=== PATIENT | female | born 1965 | race Caucasian/White ===

== ENCOUNTER → 2020-04-10 16:01 | Outpatient (CLI) | payer OTHER, SELFPAY ==
--- NOTE | ~2020-04-10 | MM_ITS ---
EXAMINATION: MM screening [facility] w james HISTORY: Screening mammogram TECHNIQUE: Craniocaudal and mediolateral oblique 3-D tomosynthesis images were obtained and synthetic 2-D images were generated. CAD analysis was submitted and interpreted. COMPARISON: 11/28/2017, 10/15/2016, 09/12/2015 BREAST PARENCHYMAL COMPOSITION: There are scattered areas of fibroglandular density. FINDINGS: There is no evidence of suspicious mass, calcification, or architectural distortion to sugg est malignancy in either breast. There has been no suspicious interval change. IMPRESSION: 1. No mammographic evidence of malignancy. 2. Recommend routine screening mammography in one year. BI-RADS Category 1: Negative Reviewed, dictated and finalized at location A. 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
== END ==
PROVIDERS: PCP Internal Medicine; Visit Provider Clinical Nurse Specialist
DX: Z12.31 Encounter for screening mammogram for malignant neoplasm of breast (principal)
CPT/HCPCS: 77063; 77067

== ENCOUNTER 2021-09-16 10:16 | Outpatient (CLI) | payer BC, SELFPAY ==
--- NOTE | ~2021-09-16 | XR_ITS ---
XR lumbar spine 2-3V DATE: 09/16/2021 10:42 INDICATION: Back pain TECHNIQUE: AP, lateral, coned lateral lumbosacral views COMPARISON: None FINDINGS: There is osteopenia. There is minimal dextroscoliosis of the lumbar spine. Normal alignment of the lumbar spine. No fracture or bone destruction. The lumbar pedicles are intact . There is mild degenerative disc disease at L1-2, L2-3 and L3-4. There is moderately severe degenerati ve disc disease at L4-5, moderate degenerative disease at L5-S1. The sacroiliac joints are intact. Status post cholecystectomy. IMPRESSION: Osteopenia Mild dextro scoliosis Multilevel degenerative disc disease, most pronounced at L4-5 Reviewed, dictated and finalized at location A.
--- NOTE | ~2021-09-16 | XR_ITS ---
EXAMINATION: XR hip RT min 2V DATE: 09/16/2021 10:41 INDICATION: Right hip pain. TECHNIQUE: 2 views of right hip were obtained. COMPARISON: Right hip radiographs 03/25/2009 FINDINGS: Bone alignment is normal. No fracture. There is moderate lumbar spondylosis. There is mild right hip osteoarthritis. IMPRESSION: 1. Mild right hip osteoarthritis. Reviewed, dictated and finalized at location B.
== END 2021-09-16 10:17 | disposition home or self-care (01) ==
PROVIDERS: PCP Internal Medicine; Visit Provider Clinical Nurse Specialist
DX: M16.11 Unilateral primary osteoarthritis, right hip (principal); M85.88 Other specified disorders of bone density and structure, other site; M51.36 Other intervertebral disc degeneration, lumbar region
CPT/HCPCS: 72100; 73502

== ENCOUNTER → 2021-09-30 09:47 | Outpatient (CLI) | payer BC, SELFPAY ==
--- NOTE | ~2021-09-30 | MR_ITS ---
j EXAMINATION: MR lumbar spine wo con DATE: 09/30/2021 10:16 INDICATION: Degenerative disc disease seen on x-ray . TECHNIQUE: Magnetic resonance imaging (MRI) of the lumbar spine was performed without intravenous con trast. Sequences included sagittal T2-weighted FSE, sagittal T2-weighted FS FSE, sagittal T1-weighted FSE, and axial T2-weighted FSE. COMPARISON: None FINDINGS: The last fully formed and hydrated disc is designated L5-S1. The marrow signal is somewhat heterogeneous possibly secondary to reconversion, no suspicious focal or infiltrative signal change. Mild reactive marrow edema in the anterior L2 vertebral body. Conus terminates at T12-L1. Multilevel disc height and disc dehydration, severe at T12-L1 and L4-5. The following disc levels are specifical ly discussed: T11-T12: The disc does not extend beyond the endplate margin. There is no facet joint osteoarthritis. There is no neural foraminal stenosis. There is no central canal stenosis. T12-L1: Moderate diffuse bulge. There is mild facet joint osteoarthritis. There is no neural foramina l stenosis. There is no central canal stenosis. L1-L2: Mild diffuse bulge. There is moderate facet joint osteoarthritis. There is no neural foraminal stenosis. There is no central canal stenosis. L2-L3: Mild diffuse bulge. There is moderate facet joint osteoarthritis. There is mild left neural fo raminal stenosis. There is no central canal stenosis. L3-L4: Mild diffuse bulge, with a 2 mm superimposed left foraminal protrusion and a focal annulus tea r. There is moderate facet joint osteoarthritis. There is mild neural foraminal stenosis. There is no central canal stenosis. L4-L5: Moderate diffuse bulge with a left foraminal component. There is moderate facet joint osteoart hritis. There is mild neural foraminal stenosis. There is no central canal stenosis. L5-S1: Mild diffuse bulge with a 3 mm left foraminal protrusion and a focal, circumferential annulus tear. There is moderate facet joint osteoarthritis. There is no right and moderate left neural forami nal stenosis. There is no central canal stenosis. IMPRESSION: 1. Severe degenerative disc disease at T12-L1 and L4-L5. 2. Focal annular tears in the L3-4 and L5-S1 discs. 3. Moderate left neural foraminal stenosis at L5-S1 secondary to degenerative disc disease with a 3 m m left foraminal protrusion and moderate facet arthropathy. 4. Multilevel moderate facet arthropathy. Reviewed, dictated and finalized at location K. IMPRESSION: 1. Severe degenerative disc disease at T12-L1 and L4-L5. 2. Focal annular tears in the L3-4 and L5-S1 discs. 3. Moderate left neural foraminal stenosis at L5-S1 secondary to degenerative d isc disease with a 3 mm left foraminal protrusion and moderate facet arthropath y. 4. Multilevel moderate facet arthropathy.
== END ==
PROVIDERS: PCP Internal Medicine; Visit Provider Clinical Nurse Specialist
DX: M47.25 Other spondylosis with radiculopathy, thoracolumbar region (principal); M48.05 Spinal stenosis, thoracolumbar region; M47.817 Spondylosis without myelopathy or radiculopathy, lumbosacral region; M48.07 Spinal stenosis, lumbosacral region
CPT/HCPCS: 72148

== ENCOUNTER 2021-12-09 00:55 | Day surgery (SDC) | payer BC, SELFPAY ==
[2021-11-25 13:27] VITALS: BMI 23.9
[2021-12-09 06:46] VITALS: BP 111/78; PULSE 60; RESP 20; TEMP 36.3; O2SAT 99
[2021-12-09] MEDS: LACTATED RINGERS 1,000 ML 150 ML IV CONT (06:56)
--- NOTE | 2021-12-09 07:28 | WPDANESEPPF ---
Anes - Initial Pre Proc Eval Procedure: Operation Date: 12/09/21 08:00 Proposed Procedures p Screening Colonoscopy - Jaiden Griffin MD Date/Time: 12/09/21 07:28 Surgeon: Jaiden Griffin MD Pre Op Diagnosis: neoplasm screening Patient Data Age: 56 Gender: F Height: 1.6 m Weight: 60.4 kg Last Vital Signs Temp 97.4 F L 12/09/21 06:46 Pulse 60 12/09/21 06:46 Resp 20 12/09/21 06:46 BP 111/78 12/09/21 06:46 Pulse Ox 99 12/09/21 06:46 O2 Del Method Room Air 12/09/21 06:46 Allergies Allergy/AdvReac Type Severity Reaction Status Date / Time Penicillins Allergy Hives Verified 12/09/21 06:45 Home Medications Medication Instructions Recorded Confirmed Type calcium carbonate 600 mg-vitamin 2 cap PO DAILY 01/03/20 11/25/21 History D3 12.5 mcg (500 unit) capsule (Calcium 600 with Vitamin D3) cholecalciferol (vitamin D3) 50 2,000 unit PO DAILY 01/03/20 11/25/21 History mcg (2,000 unit) capsule cyanocobalamin (vitamin B-12) 2,500 mcg PO DAILY 01/03/20 11/25/21 History 2,500 mcg tablet elderberry fruit 200 mg capsule 200 mg PO POST-TRANSFUSION 01/03/20 11/25/21 History multivitamin 1 tablet PO DAILY 01/03/20 11/25/21 History multivitamin with minerals 1 tablet PO DAILY 01/03/20 11/25/21 History (Hair,Skin and Nails tablet) omega-3 fatty acids 1,000 mg 1,000 mg PO BID 01/03/20 11/25/21 History capsule (Fish Oil Concentrate) omeprazole 20 mg capsule,delayed 20 mg PO BID 01/03/20 11/25/21 History release ashwaganda See Rx Instructions .Route .COMPLEX 10/14/21 11/25/21 History sertraline 100 mg tablet (Zoloft) 100 mg PO DAILY 11/25/21 11/25/21 History meloxicam 7.5 mg tablet 7.5 mg PO DAILY PRN back pain #30 12/01/21 Rx tabs Patient hx anesthesia problems: none Family hx anesthesia problems: none Results Review: All pre-operative results and documents have been reviewed as part of the pre-operative evaluation. [facility] Past Medical History Medical History Cholecystectomy planned Surgical History Surgical History H/O section 1988 History of tonsillectomy Family History Family History Mother Lung cancer Sibling Cervical cancer Social History Social History Smoking packs per day: 1 Smoking cigarettes per day: 20.0 Smoking status: Former smoker Tobacco type: cigarettes Alcohol intake: never Substance use: never Living arrangements: with family Anes - Eval Final PreProcedure Day of Procedure 12/09/21 07:28 Patient weight: normal Heart: regular rate and rhythm Lungs: clear to auscultation Airway: Mallampati scale class II Neurological: alert and oriented Last oral intake: >/= 8 hours ASA classification: II Emergent: no Anesthetic plan: proceed Anesthesia type and monitoring: general GIVS and standard monitoring Results Review: All pre-operative results and documents have been reviewed as part of the pre-operative evaluation. Informed Consent: The patient's anesthetic plan and its attendant risks and benefits were discussed with the patient/family/POA. Questions were solicited and answers provided to the satisfaction of the patient/family/POA.
--- NOTE | 2021-12-09 07:50 | PM.HPGS ---
History of Present Illness History of Present Illness Consent: Risks, benefits, and alternatives have been discussed and questions answered. Patient agrees to proceed with procedure. Chief complaint: neoplasm screening Narrative: Janae Xiong is a 56 year old female here for first screening colonoscopy Review of Systems Constitutional: Constitutional: Denies headache(s) and Denies weakness Eyes: Eyes: Denies blurry vision ENT: Reports Normal hearing present, Denies headache(s) and Denies neck pain Cardiovascular: Cardiovascular: Denies chest pain and Denies dyspnea Respiratory: Respiratory: Denies dyspnea Gastrointestinal: Gastrointestinal: Reports no additional gastrointestinal complaints Genitourinary: Genitourinary: Denies dysuria Musculoskeletal: Musculoskeletal: Denies neck pain Integumentary/Breasts: Skin/Breast: Denies dry skin Neurologic: Reports Normal hearing present, Denies headache(s) and Denies weakness Psychiatric: Psychiatric: Denies anxiety Endocrine: Endocrine: Denies change in body appearance Hematologic/Lymphatic: Hematologic/Lymphatic: Denies easy bleeding Allergic/Immunologic: Allergic/Immunologic: Denies urticaria PMF Past Medical History Medical History Cholecystectomy planned Surgical History Surgical History H/O section 1988 History of tonsillectomy Family History Family History Mother Lung cancer Sibling Cervical cancer Social History Social History Smoking packs per day: 1 Smoking cigarettes per day: 20.0 Smoking status: Former smoker Tobacco type: cigarettes Alcohol intake: never Substance use: never Living arrangements: with family Meds Home Medications and Allergies Home Medications Medication Instructions Recorded Confirmed Type calcium carbonate 600 mg-vitamin 2 cap PO DAILY 01/03/20 11/25/21 History D3 12.5 mcg (500 unit) capsule (Calcium 600 with Vitamin D3) cholecalciferol (vitamin D3) 50 2,000 unit PO DAILY 01/03/20 11/25/21 History mcg (2,000 unit) capsule cyanocobalamin (vitamin B-12) 2,500 mcg PO DAILY 01/03/20 11/25/21 History 2,500 mcg tablet elderberry fruit 200 mg capsule 200 mg PO POST-TRANSFUSION 01/03/20 11/25/21 History multivitamin 1 tablet PO DAILY 01/03/20 11/25/21 History multivitamin with minerals 1 tablet PO DAILY 01/03/20 11/25/21 History (Hair,Skin and Nails tablet) omega-3 fatty acids 1,000 mg 1,000 mg PO BID 01/03/20 11/25/21 History capsule (Fish Oil Concentrate) omeprazole 20 mg capsule,delayed 20 mg PO BID 01/03/20 11/25/21 History release ashwaganda See Rx Instructions .Route .COMPLEX 10/14/21 11/25/21 History sertraline 100 mg tablet (Zoloft) 100 mg PO DAILY 11/25/21 11/25/21 History meloxicam 7.5 mg tablet 7.5 mg PO DAILY PRN back pain #30 12/01/21 Rx tabs Allergies Allergy/AdvReac Type Severity Reaction Status Date / Time Penicillins Allergy Hives Verified 12/09/21 06:45 Vital Signs Vital Signs - 24 hr 12/09/21 06:46 Temperature 97.4 F L Pulse Rate 60 Respiratory Rate 20 Blood Pressure 111/78 Pulse Oximetry 99 Oxygen Delivery Room Air Exam Const: General: comfortable and no acute distress HENMT: General nose exam: Normal nares present Eyes: General: appearance normal, both eyes and all related structures Neck: Neck: no JVD Resp: Auscultation: clear to auscultation bilaterally Cardio: Rate: regular rate Rhythm: regular rhythm GI: Inspection: non-distended GI Palp: Yes Soft to palpation Skin: General skin exam: normal color Neuro: General: gait normal Speech: normal speech Extrem: General: normal to inspection Psych: Mental Status: mental status grossly normal Assessment and Plan Assessment and
[2021-12-09 08:10] VITALS: BP 104/79; PULSE 59; RESP 18; O2SAT 100
[2021-12-09 08:20] VITALS: BP 99/76; PULSE 63; RESP 24; O2SAT 100
[2021-12-09 08:30] VITALS: BP 128/82; PULSE 61; RESP 21; O2SAT 100
== END 2021-12-09 08:32 | disposition home or self-care (01) ==
PROVIDERS: PCP Internal Medicine; Visit Provider Internal Medicine Gastroenterology
PROC: 0DJD8ZZ Inspection of Lower Intestinal Tract, Via Natural or Artificial Opening Endoscopic (ICD-10-PCS; CPT 45378; principal; 2021-12-09 08:00)
DX: Z12.11 Encounter for screening for malignant neoplasm of colon (principal); K63.5 Polyp of colon; K57.30 Diverticulosis of large intestine without perforation or abscess without bleeding; K64.8 Other hemorrhoids
CPT/HCPCS: 45385; 88305; J2704; J7120

== ENCOUNTER 2023-01-25 15:24 | Outpatient (CLI) | payer BC, SELFPAY ==
--- NOTE | ~2023-01-25 | XR_ITS ---
EXAMINATION: XR lumbar spine min 4V DATE: 01/25/2023 16:10 INDICATION: Radiculopathy, lumbar region. TECHNIQUE: 4 views of lumbar spine standing including flexion and extension views were obtained. COMPARISON: Lumbar spine radiographs 09/16/2021, MRI 09/30/2021 FINDINGS: There is 11 degrees dextroscoliosis of thoracolumbar spine. The spine is hypomobile with fl exion and extension. Vertebral body heights are normal. There is moderately decreased disc height at T12-L1 and L4-L5. There is multilevel mild to moderate facet joint osteoarthritis. Surgical clips in the right upper quadrant are likely from cholecystectomy. IMPRESSION: 1. Moderate lumbar spondylosis. 2. Thoracolumbar dextroscoliosis. Reviewed, dictated and finalized at location E.
--- NOTE | ~2023-01-25 | XR_ITS ---
XR hip RT min 2V 01/25/2023 16:10 Indication: Right hip pain Procedure: 2 views right hip Comparison: Comparison to multiple prior studies sequentially, with oldest reviewed study dated 03/05. Findings: There is mild osteoarthritis of the right hip. No fracture or traumatic malalignment. There is anatomic alignment. No soft tissue abnormality. No foreign body. Impression: 1: Mild osteoarthritis of the right hip. Reviewed, dictated and finalized at location L. Impression: 1: Mild osteoarthritis of the right hip.
[2023-01-25 16:18] LABS: Erythrocyte Sedimentation Rate 13 mm/hr (0-20)
[2023-01-29 19:59] LABS: CRP, High Sensitivity 0.4 mg/L (***)
== END 2023-01-25 15:25 | disposition home or self-care (01) ==
LOC: ANHLAB 15:26
PROVIDERS: PCP Internal Medicine; Visit Provider Neurological Surgery
DX: M16.11 Unilateral primary osteoarthritis, right hip (principal); M43.06 Spondylolysis, lumbar region; M41.85 Other forms of scoliosis, thoracolumbar region; G95.9 Disease of spinal cord, unspecified; M47.816 Spondylosis without myelopathy or radiculopathy, lumbar region; M54.16 Radiculopathy, lumbar region
CPT/HCPCS: 36415; 72110; 73502; 85652; 86038; 86141

== ENCOUNTER 2023-02-03 07:18 | Outpatient (CLI) | payer BC, SELFPAY ==
--- NOTE | ~2023-02-03 | MR_ITS ---
EXAMINATION: MR lumbar spine wo con DATE: 02/03/2023 08:13 INDICATION: Spondylosis without myelopathy or radiculopathy. Back pain. TECHNIQUE: Magnetic resonance imaging (MRI) of the lumbar spine was performed without intravenous con trast. Sequences included sagittal T2-weighted FSE, sagittal T2-weighted FS FSE, sagittal T1-weighted FSE, and axial T2-weighted FSE. COMPARISON: Lumbar spine MRI 09/30/2021, radiographs 01/25/2023 FINDINGS: There is 11 degrees dextroscoliosis of thoracolumbar spine. There is mild chronic anterior wedging of T11 and L1 vertebral bodies. There is severely decreased disc height at L4-L5 and mildly d ecreased disc height at L5-S1. The distal spinal cord signal intensity is normal. The conus medullari s is at T12. There are cysts in the kidneys measuring up to 6.3 cm on the right. The following disc l evels are specifically discussed: L1-L2: The disc does not extend beyond the endplate margin. There is mild bilateral facet joint osteo arthritis. There is no neural foraminal stenosis. There is no central canal stenosis. L2-L3: There is a left foraminal protrusion. There is mild bilateral facet joint osteoarthritis. Ther e is mild left neural foraminal stenosis. There is no central canal stenosis. L3-L4: The disc is bulging. There is mild bilateral facet joint osteoarthritis. There is mild bilater al neural foraminal stenosis. There is mild central canal stenosis. L4-L5: The disc is bulging and has an annular fissure. There is mild bilateral facet joint osteoarthr itis. There is mild bilateral neural foraminal stenosis. There is mild central canal stenosis. L5-S1: The disc is bulging and has an annular fissure. There is mild bilateral facet joint osteoarthr itis. There is mild left neural foraminal stenosis. There is mild central canal stenosis. IMPRESSION: 1. Moderate lumbar spondylosis. 2. Thoracolumbar dextroscoliosis. Reviewed, dictated and finalized at location E.
--- NOTE | ~2023-02-03 | MR_ITS ---
EXAMINATION: MR cervical spine wo con DATE: 02/03/2023 08:13 INDICATION: Radiculopathy, cervical region. TECHNIQUE: Magnetic resonance imaging (MRI) of the cervical spine was performed without intravenous c ontrast. COMPARISON: None FINDINGS: Bone alignment is normal. Vertebral body heights are normal. There is mildly decreased disc height at C5-C6 and moderately decreased disc height at C6-C7. The spinal cord signal intensity is n ormal. The following disc levels are specifically discussed: C2-C3: The disc does not extend beyond the endplate margin. There is no uncovertebral joint osteoarth ritis. There is mild bilateral facet joint osteoarthritis. There is no neural foraminal stenosis. The re is no central canal stenosis. C3-C4: The disc does not extend beyond the endplate margin. There is no uncovertebral joint osteoarth ritis. There is mild bilateral facet joint osteoarthritis. There is no neural foraminal stenosis. The re is no central canal stenosis. C4-C5: The disc does not extend beyond the endplate margin. There is no uncovertebral joint osteoarth ritis. There is moderate right and mild left facet joint osteoarthritis. There is no neural foraminal stenosis. There is no central canal stenosis. C5-C6: The disc is bulging. There is severe bilateral uncovertebral joint osteoarthritis. There is mo derate right and mild left facet joint osteoarthritis. There is mild bilateral neural foraminal steno sis. There is mild central canal stenosis. C6-C7: The disc is bulging. There is severe bilateral uncovertebral joint osteoarthritis. There is mo derate right and mild left facet joint osteoarthritis. There is mild bilateral neural foraminal steno sis. There is mild central canal stenosis. C7-T1: There is a central extrusion. There is no uncovertebral joint osteoarthritis. There is severe bilateral facet joint osteoarthritis. There is mild bilateral neural foraminal stenosis. There is mil d central canal stenosis. IMPRESSION: 1. Moderate cervical spondylosis. Reviewed, dictated and finalized at location E.
== END 2023-02-03 07:19 | disposition home or self-care (01) ==
PROVIDERS: PCP Internal Medicine; Visit Provider Neurological Surgery
DX: M47.26 Other spondylosis with radiculopathy, lumbar region (principal); M47.22 Other spondylosis with radiculopathy, cervical region
CPT/HCPCS: 72141; 72148

== ENCOUNTER → 2023-03-03 10:31 | Outpatient (CLI) | payer BC, SELFPAY ==
--- NOTE | ~2023-03-03 | US_ITS ---
Renal-Bladder ultrasound Clinical History: Renal cyst Technique: Real-time sonographic imaging of the kidneys and urinary bladder was performed. Findings: The right kidney measures 11.6 cm in length and the left kidney measures 10.1 cm. There is no hydronephrosis or renal calculus identified. Renal cortical echogenicity is within normal limits. No solid renal mass lesion is identified. Right lower pole renal cyst measures 5.8 cm in maximum diam eter. Smaller right midpole cyst measures 0.8 cm. Left renal cyst measures 1.3 cm. The urinary bladder is moderately distended at the time of this exam. No intraluminal echoes are iden tified. No abnormal wall thickening is seen. Impression: No significant abnormality. Renal cysts, as detailed above. Reviewed, dictated and finalized at location . 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 Renal cysts, as detailed above.
== END ==
PROVIDERS: PCP Clinical Nurse Specialist; Visit Provider Clinical Nurse Specialist
DX: N28.1 Cyst of kidney, acquired (principal)
CPT/HCPCS: 76775

== ENCOUNTER 2024-03-26 15:41 | Outpatient (CLI) | payer BC, SELFPAY ==
--- NOTE | ~2024-03-26 | MM_ITS ---
EXAMINATION: MM screening [facility] w james HISTORY: Screening TECHNIQUE: Craniocaudal and mediolateral oblique 3-D tomosynthesis images were obtained and synthetic 2-D images were generated. CAD analysis was submitted and interpreted. COMPARISON: 04/10/2020 and 09/12/2015 dating back to BREAST PARENCHYMAL COMPOSITION: There are scattered areas of fibroglandular density. FINDINGS: Stable parenchymal pattern without suspicious microcalcifications, architectural distortion, discrete masses or significant asymmetry. IMPRESSION: 1. No mammographic evidence of malignancy. 2. Recommend routine screening mammography in one year. BI-RADS Category 1: Negative Reviewed, dictated and finalized at location A. 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
== END 2024-03-26 15:42 | disposition home or self-care (01) ==
LOC: MICIMG 15:42
PROVIDERS: PCP Clinical Nurse Specialist; Visit Provider Student in an Organized Health Care Education/Training Program
DX: Z12.31 Encounter for screening mammogram for malignant neoplasm of breast (principal)
CPT/HCPCS: 77063; 77067